=== PATIENT | male | born 1990 | race Caucasian/White ===

== ENCOUNTER 2020-01-06 00:06 | Observation (INO) | payer OTHER, BC, SELFPAY ==
[2020-01-06] VITALS (13 sets, daily range): BP systolic 98–124; BP diastolic 46–78; PULSE 64–105; RESP 15–20; TEMP 36.2–37.2; O2SAT 95–100; BMI 24.6
--- NOTE | ~2020-01-06 | CT_ITS ---
EXAMINATION: CT abdomen pelvis w con INDICATION: Right lower quadrant abdominal pain TECHNIQUE: Computed tomographic images of the abdomen and pelvis were obtained after the administrati on of 100 cc of Omnipaque 350 intravenous contrast. The dose-length product (DLP) was 277.88 mGy-cm. Automated exposure control and iterative reconstruction technique were employed. COMPARISON: 11/11/2019 FINDINGS: The lung bases are clear. The heart size is normal. The liver, spleen, pancreas, gallbladde r, and adrenal glands are normal. Cysts there is a 6 mm cyst of the left kidney. The right kidney is normal. The dilated appendix measures up to 11 mm. There is edematous stranding of the periappendicea l fat. Prominent right pericolic lymph nodes are likely reactive. There is a small amount of free flu id in the pelvis. No free intraperitoneal gas is identified. The stomach is distended with ingested m aterial. IMPRESSION: 1. Acute appendicitis without perforation or abscess. 2. Small amount of pelvic ascites. 3. Right pericolic lymph nodes, likely reactive. These findings were discussed with Dr. Mariano Hewitt DO in the Emergency Department at 0140 hour s on 01/06/2020 by the [employer] Radiologist. Reviewed, dictated and finalized at location A. SOFTWARE QA ENGINEER IMPRESSION: 1. Acute appendicitis without perforation or abscess. 2. Small amount of pelvic ascites. 3. Right pericolic lymph nodes, likely reactive. These findings were discussed with Dr. Mariano Hewitt DO in the Emergency D epartment at 0140 hours on 01/06/2020 by the [employer] Radiologist.
--- NOTE | 2020-01-06 00:28 | ED.ABDPAIN ---
HPI - Abdominal Pain General Chief Complaint: Abdominal Pain Stated Complaint: abd pain Time Seen by Provider: 01/06/20 00:13 Source: patient and RN notes reviewed Mode of arrival: ambulatory Limitations: no limitations History of Present Illness HPI narrative: Pt is a 29 y/o male who presents to the ED with c/o epigastric pain starting this evening. He notes that he initially developed pain in his epigastric region around 18:00, but states that his pain worsened around 21:00. Pt notes that his pain radiates into his rt lower ABD. He denies any nausea, vomiting, fever, or chills accompanying his pain. Pt states that he hasn't taken any pain medications for his symptoms. MD elicited complaint: abdominal pain Pertinent past history: kidney stones Onset (ago): hour(s) (6) Location: epigastric Radiation: RLQ Associated symptoms: denies other symptoms Related Data Allergies Allergy/AdvReac Type Severity Reaction Status Date / Time No Known Allergies Allergy Verified 11/11/19 10:52 Review of Systems Review of Systems: All systems reviewed & are unremarkable except as noted in HPI and below Constitutional: Constitutional: Denies chills and Denies fever(s) Gastrointestinal: Gastrointestinal: Reports abdominal pain (epigastric pain radiating into RLQ), Denies nausea and Denies vomiting PMFSH Past Medical History Medical History Urolithiasis Surgical History Surgical History H/O lithotripsy Social History Social History Smoking status: Never smoker Gender identity (if verbalized by the patient): Male Exam Narrative: Exam Narrative: APPEARANCE: No acute distress, nontoxic, resting in bed HEENT: Normocephalic, atraumatic, OMM RESPIRATORY: No respiratory distress, clear to auscultation bilaterally with no rhonchi wheezing or rales CARDIOVASCULAR: RRR s murmur ABDOMINAL: Soft, nondistended, tender to palpation right lower quadrant, no tenderness in right upper quadrant, left upper quadrant left lower quadrant, no rebound or guarding MUSCULOSKELETAl: Moves all extremities. No clubbing, cyanosis or edema. NEURO: Awake and alert. Following commands, speech normal, no focal deficits SKIN:: Warm, dry. Normal Color PSYCHIATRIC: Normal affect/mood Course Course Emergency Course: Discussed with Dr. Myers presentation work-up. Agrees with admission to his service with patient started on Zosyn and n.p.o. Discussed with patient and family results of workup and diagnosis. Discussed need for admission. Patient and family understand and agree to current treatment plan Vital Signs Vital signs: Vital Signs Temperature 98.2 F 01/06/20 00:09 Pulse Rate 105 H 01/06/20 00:09 Respiratory Rate 18 01/06/20 00:09 Blood Pressure 124/77 01/06/20 00:09 Pulse Oximetry 99 01/06/20 00:09 Temperature 98.2 F 01/06/20 00:09 Pulse Rate 105 H 01/06/20 00:09 Respiratory Rate 18 01/06/20 00:09 Blood Pressure 124/77 01/06/20 00:09 Pulse Oximetry 99 01/06/20 00:09 MDM - Abdominal Pain Lab Data Result diagrams: 01/06/20 00:25 01/06/20 00:25 Labs: Lab Results 01/06/20 01/06/20 Range/Units 00:25 00:25 WBC 13.9 H (4.5-10.0) K/mm3 RBC 5.03 (4.6-6.20) M/mm3 Hgb 15.3 (14.0-18.0) g/dL Hct 45.2 (42.0-52.0) % MCV 89.9 (80-100) fl MCH 30.4 (26-34) pg MCHC 33.8 (32-36) g/dl RDW 13.1 (11.5-14.5) % Plt Count 253 (150-375) k/mm3 MPV 10.0 (7.4-10.4) fl Immature Gran % (Auto) 0.5 (0-0.5) % Neut % (Auto) 75.0 H (45.5-73.1) % Lymph % (Auto) 10.8 L (18.3-44.2) % [place] % (Auto) 10.5 H (2.6-8.5) % Eos % (Auto) 2.8 (0-4.4) % Baso % (Auto) 0.4 (0.2-1.2) % Lymph # (Auto) 1.50 (0.9-3.2) K/mm3 [place] # (Auto) 1.5 H (0.1-0.6) K/mm3 Eos # (Auto) 0.4 H (0-0.3) K/mm3 Baso # (Auto) 0.1
[2020-01-06] MEDS: KETOROLAC 30 MG/ML VIAL (*BKC) IV PUSH (00:42)
[2020-01-06] MEDS: LACTATED RINGERS 1,000 ML 999 ML IV CONT (00:42)
--- NOTE | 2020-01-06 00:42 | PC.NURSE ---
Patient notified we need urine sample, fluids initiated.
[2020-01-06 00:45] LABS: Alanine Aminotransferase 21 U/L (4-50); Albumin Level 4.8 g/dL (3.5-5.1); Alkaline Phosphatase 80 U/L (38-126); Aspartate Amino Transferase 23 U/L (17-59); Bilirubin,Total 0.9 mg/dL (0.2-1.3); Blood Urea Nitrogen 17 mg/dL (9-20); Calcium 9.5 mg/dL (8.4-10.2); Carbon Dioxide 25 mmol/L (22-30); Chloride 98 mmol/L (98-107); Estimated Glomerular Filt Rate > 60; Glucose 127 mg/dL (75-110); Lipase 88 U/L (23-300); Potassium 3.9 mmol/L (3.4-5.0); Sodium 139 mmol/L (137-145)
[2020-01-06 00:46] LABS: Basophils Absolute Auto 0.1 K/mm3 (0.0-0.1); Basophils Percent Auto 0.4 % (0.2-1.2); Eosinophils Absolute Auto 0.4 K/mm3 (0-0.3); Eosinophils Percent Auto 2.8 % (0-4.4); Hematocrit 45.2 % (42.0-52.0); Hemoglobin 15.3 g/dL (14.0-18.0); Immature Granulocyte Absolute 0.07 K/mm3 (0.00-0.031); Immature Granulocyte Percent A 0.5 % (0-0.5); Lymphocytes Percent Auto 10.8 % (18.3-44.2); Mean Corpuscular HGB Conc 33.8 g/dl (32-36); Mean Corpuscular Hemoglobin 30.4 pg (26-34); Mean Corpuscular Volume 89.9 fl (80-100); Monocytes Absolute Auto 1.5 K/mm3 (0.1-0.6); Monocytes Percent Auto 10.5 % (2.6-8.5); Neutrophils Absolute Auto 10.5 K/mm3 (1.3-6.7); Platelet Count Result 253 k/mm3 (150-375); Red Blood Count 5.03 M/mm3 (4.6-6.20); Red Cell Distribution Width 13.1 % (11.5-14.5); White Blood Count 13.9 K/mm3 (4.5-10.0)
[2020-01-06 02:28] LABS: Add Urine Microscopic? YES; Appearance Urine Clear (Clear); Bilirubin Urine Negative (Negative); Blood Urine Negative (Negative); Color Urine Yellow (Yellow); Glucose Urine UA Negative (Negative); Ketones Urine Negative (Negative); Leukocyte Esterase Ur Negative LEU/UL (Negative); Mucus Urine Rare /lpf; Nitrate Urine Negative (Negative); Protein Urine Negative (Negative); RBC Urine 0-2 /hpf (0-2); WBC Urine 0-3 /hpf
[2020-01-06] MEDS: LACTATED RINGERS 1,000 ML 125 ML IV CONT ×2 (02:56→11:37)
--- NOTE | 2020-01-06 03:12 | PC.NURSE ---
This patient, Jonathan Madrid, was admitted to Medical Room 251-. Patient/family oriented to hospital policies and general routines including ID bracelet, bed and alarms, visiting hours, pain management, procedures, bathroom and other care routines, personal items, smoking policy, room service/diet, and visiting hours. Valuables list has been completed. Information on how to activate the Rapid Response Team has been discussed. Patient/Family are encouraged to report perceived risks to care and to ask questions if they do not understand what they are told or what they should do.
--- NOTE | 2020-01-06 08:35 | WPDANESEPPF ---
Anes - Initial Pre Proc Eval Procedure: Operation Date: 01/06/20 15:00 Proposed Procedures p Laparoscopic Appendectomy - Vincent Myers DO Date/Time: 01/06/20 08:35 Surgeon: Vincent Myers DO Pre Op Diagnosis: Appendicitis Patient Data Age: 29 Gender: M Height: 1.63 m Weight: 65.1 kg Last Vital Signs Temp 36.9 C 01/06/20 06:00 Pulse 64 01/06/20 06:00 Resp 20 01/06/20 06:00 BP 107/70 01/06/20 06:00 Pulse Ox 98 01/06/20 06:00 Allergies Allergy/AdvReac Type Severity Reaction Status Date / Time No Known Allergies Allergy Verified 11/11/19 10:52 Home Medications Medication Instructions Recorded Confirmed Type ketorolac 10 mg PO Q6H PRN #10 tablet 11/11/19 Rx ondansetron HCl [Zofran] 4 mg PO Q6H PRN #7 tablet 11/11/19 Rx tamsulosin [Flomax] 0.4 mg PO HS #7 cap 11/11/19 Rx Laboratory Tests 01/06/20 01/06/20 01/06/20 00:25 00:25 02:04 WBC 13.9 K/mm3 H K/mm3 (4.5-10.0) RBC 5.03 M/mm3 M/mm3 (4.6-6.20) Hgb 15.3 g/dL g/dL (14.0-18.0) Hct 45.2 % % (42.0-52.0) MCV 89.9 fl fl (80-100) MCH 30.4 pg pg (26-34) MCHC 33.8 g/dl g/dl (32-36) RDW 13.1 % % (11.5-14.5) Plt Count 253 k/mm3 k/mm3 (150-375) MPV 10.0 fl fl (7.4-10.4) Immature Gran % (Auto) 0.5 % % (0-0.5) Neut % (Auto) 75.0 % H % (45.5-73.1) Lymph % (Auto) 10.8 % L % (18.3-44.2) [place] % (Auto) 10.5 % H % (2.6-8.5) Eos % (Auto) 2.8 % % (0-4.4) Baso % (Auto) 0.4 % % (0.2-1.2) Lymph # (Auto) 1.50 K/mm3 K/mm3 (0.9-3.2) [place] # (Auto) 1.5 K/mm3 H K/mm3 (0.1-0.6) Eos # (Auto) 0.4 K/mm3 H K/mm3 (0-0.3) Baso # (Auto) 0.1 K/mm3 K/mm3 (0.0-0.1) Abs Immat Gran (auto) 0.07 K/mm3 H K/mm3 (0.00-0.031) Absolute Neuts (auto) 10.5 K/mm3 H K/mm3 (1.3-6.7) Absolute Nucleated RBC 0.0 K/mm3 K/mm3 (0.0-0.012) Nucleated RBC % 0.0 % % (0.0-0.2) Sodium 139 mmol/L mmol/L (137-145) Potassium 3.9 mmol/L mmol/L (3.4-5.0) Chloride 98 mmol/L mmol/L (98-107) Carbon Dioxide 25 mmol/L mmol/L (22-30) BUN 17 mg/dL mg/dL (9-20) Creatinine 1.00 mg/dL mg/dL (0.7-1.3) Estim Creat Clear Calc Not Reportable Estimated GFR > 60 (59 - ) Glucose 127 mg/dL H mg/dL (75-110) Calcium 9.5 mg/dL mg/dL (8.4-10.2) Total Bilirubin 0.9 mg/dL mg/dL (0.2-1.3) AST 23 U/L U/L (17-59) ALT 21 U/L U/L (4-50) Alkaline Phosphatase 80 U/L U/L (38-126) Total Protein 8.0 g/dL g/dL (6.3-8.2) Albumin 4.8 g/dL g/dL (3.5-5.1) Lipase 88 U/L U/L (23-300) Urine Color Yellow (Yellow) Urine Appearance Clear (Clear) Urine pH 6.0 (5.0-9.0) Ur Specific [place] 1.050 H (1.001-1.035) Urine Protein Negative mg/dL mg/dL (Negative) Urine Glucose (UA) Negative mg/dL mg/dL (Negative) Urine Ketones Negative mg/dL mg/dL (Negative) Ur Blood (Man) Negative (Negative) Urine Nitrate Negative (Negative) Urine Bilirubin Negative (Negative) Urine Urobilinogen 2.0 mg/dL H mg/dL (<2.0) Leukocyte Esterase Rfl Negative MIKE/UL MIKE/UL (Negative) Urine RBC 0-2 /hpf /hpf (0-2) Urine WBC 0-3 /hpf /hpf Urine Mucus Rare /lpf /lpf Patient hx anesthesia problems: none Family hx anesthesia problems: none [facility] Past Medical History Medical History Urolithiasis Surgical History Surgical History H/O lithotripsy Family History Family History (Reviewe
--- NOTE | 2020-01-06 09:14 | PM.IMHP ---
H&P: HPI History of Present Illness Chief complaint: Appendicitis Narrative: Jonathan Madrid is a 29 year old male who presented to the emergency department last night with complaints of abdominal pain. The patient reports initially noting epigastric pain around 4:00 p.m. last night. He states the pain was very mild any thought he needed to eat. He ate a sandwich and chips, but his pain did not improve. The pain continued to worsen through the evening and began to localize to the right lower quadrant of his abdomen. Denies nausea but he attempted to make himself vomit, but this did not improve his symptoms either. The pain was unrelenting and continued to worsen, therefore he presented to the emergency department for further evaluation. CT scan of the abdomen and pelvis showed an enlarged fluid-filled appendix measuring up to 11 mm with mild periappendiceal fat induration, consistent with acute appendicitis. No evidence of perforation or abscess. Labs revealed a white blood cell count of 13,900. Our service was contacted for the acute appendicitis and the patient was admitted and started on IV antibiotics and made NPO. Patient is now being seen on the medical floor. He reports his pain significantly improved after receiving Toradol in the ER. Denies nausea or vomiting at this time. He does report a low-grade temp of 99.7? F last night around 9:00 p.m.. No other complaints at this time. Review of Systems Constitutional: Constitutional: Reports as per HPI, Denies chills, Denies excessive sweating, Denies fatigue, Reports fever(s) (low grade 99.7F last night), Denies headache(s), Denies malaise and Denies weakness Eyes: Eyes: Denies change in vision and Denies loss of vision ENT: Reports Normal hearing present, Denies dizziness and Denies headache(s) Cardiovascular: Cardiovascular: Denies chest pain, Denies syncope, Denies leg edema, Denies lightheadedness, Denies radiating jaw, neck or arm pain and Denies dyspnea Respiratory: Respiratory: Denies cough, Denies dyspnea and Denies wheezing Gastrointestinal: Gastrointestinal: Reports as per HPI, Reports abdominal pain (initially mid upper and radiated to RLQ), Denies melena, Denies bloating, Denies hematochezia, Denies change in bowel habits, Denies constipation, Denies GI cramping, Denies diarrhea and Denies nausea Musculoskeletal: Musculoskeletal: Denies deformity, Denies joint swelling, Denies radiating pain into limb and Denies tingling Integumentary/Breasts: Skin/Breast: Denies pruritus, Denies wounds and Denies jaundice Neurologic: Reports Normal hearing present, Denies confusion, Denies dizziness, Denies syncope, Denies headache(s), Denies loss of vision, Denies tingling, Denies tremor(s) and Denies weakness Psychiatric: Psychiatric: Denies anxiety and Denies depression Endocrine: Endocrine: Denies cold intolerance, Denies excessive sweating and Denies heat intolerance Hematologic/Lymphatic: Hematologic/Lymphatic: Denies easy bleeding and Denies easy bruising [facility] Past Medical History Medical History Urolithiasis Surgical History Surgical History H/O lithotripsy Family History Family History Father Pancreatic cancer Grandparent Skin cancer Social History Social History Smoking status: Former smoker Additional smoking assessment comments: Previously smoked about 1 cigaretter per month. Alcohol intake: never Substance use: never Living arrangements: with roommate(s) Additional living arrangements comments: Lives with 2 roommates. His mother and sister live in [place]. Occupation/Education: occupation Additional occupation/education comments: Works at [employer] for [employer]. Gender identity (if verbalized by the patien
--- NOTE | 2020-01-06 13:40 | PC.NURSE ---
To OR per bed, IV intact.
[2020-01-06] MEDS: LACTATED RINGERS 1,000 ML 30 ML IV CONT (14:00)
[2020-01-06] MEDS: IBUPROFEN IV 800 MG/200 ML 800 MG/200 ML BAG 400 MG IVPB (14:15)
[2020-01-06] MEDS: BUPIVACAINE/EPINEPHRINE 0.5% 30 ML VIAL INFILTRATE (15:42)
--- NOTE | 2020-01-06 16:08 | PM.PROC ---
Procedure Note - Detailed Date of procedure: 01/06/20 Pre-op diagnosis: Appendicitis Post-op diagnosis: same Procedure performed: Laparoscopic Appendectomy Description of procedure: Procedure as well as risks, benefits, and alternatives were explained to the patient. The patient agreed to proceed. Written consent was obtained and placed in chart prior to procedure. The patient was brought back to surgical suite. He was placed supine on operating table. Time-out was done to confirm the patient and procedure. The patient was then intubated by the Anesthesia Department. His abdomen was prepped and draped in sterile fashion using chlorhexidine prep. A 12 mm incision was made at the inferior portion of the umbilicus. Blunt dissection was carried out down to the linea alba. The linea alba was then incised using a 15 blade scalpel. Then bluntly entered into the peritoneal cavity. A 12 mm trocar was then inserted, and carbon dioxide insufflation was used to create a pneumoperitoneum. The camera was inserted and the abdomen was inspected. No immediate abnormalities were identified. The patient was then placed in slight Trendelenburg position and rotated to the left. A 5 mm incision was made in the suprapubic region in midline and a 5 mm trocar was inserted under direct visualization. A 5 mm incision was made in the left lower quadrant and a 5 mm trocar was inserted under direct visualization. The right lower quadrant was carefully inspected. The cecum was identified and then this was traced back to the appendix. The appendix was identified and grasped at the mesoappendix and lifted anteriorly. Careful blunt dissection was carried out at the base of the appendix through the mesoappendix using a [place] grasper. An Endo-DERREK 45 mm blue load stapler was then advanced across the base of the appendix and clamped and fired. A white reload was then clamped across the mesoappendix and fired. This freed up our appendix completely. It was then placed in an EndoCatch bag and removed through the left lower quadrant port. The staple lines were then inspected. Hemostasis appeared adequate and the staple lines appeared secure. The area was then irrigated with sterile saline. The pelvis was then carefully inspected and irrigated with sterile saline as well and the remainder of the abdomen was carefully inspected. The patient was then flattened out in bed. One final inspection was made around the abdominal cavity and no other abnormalities were seen. The ports were then removed under direct visualization. The camera was removed and the pneumoperitoneum was released. The fascia of the umbilical incision was reapproximated using an 0 Vicryl afowms-ot-wakjl suture. 0.5% bupivacaine with epinephrine was infiltrated locally around each of the incisions. The skin of the incisions was then approximated using 4-0 Monocryl subcuticular suture and Exofin glue was applied on top. The patient was then awakened from anesthesia, extubated, and transferred to Recovery. Anesthesia: GETA and local (0.5% bupivicaine with epi) Surgeon: Vincent Myers DO Estimated blood loss (mL): 10 Pathology: yes (Appendix) Complications: No immediate complications Condition: stable Findings: This is a 29-year-old man who presented to the emergency department this morning with complaints of right lower quadrant abdominal pain. He began with vague cramping periumbilical pain last night that eventually localized to the right lower quadrant. He denies any fevers or chills. He has never had any symptoms like this in the past. He was noted to have a slightly elevated white blood count, and CT of his abdomen and pelvis showed evidence of acute appendicitis. Discussions were made with the patient about treatment options, and decision was made to proceed with laparoscopic appendectomy, possible open. Laparoscopic appendectomy was performed. The appendix appeared dilated and inflamed, but there was
--- NOTE | 2020-01-06 16:42 | SUR.PHASEI ---
1640 - no family available at this time for update 1642 - dr. mosley at bedside talking with pt.
--- NOTE | 2020-01-06 16:56 | SUR.PHASEI ---
1456 - pt's mom called for update on pt. pt stated that I could give her update.
== END 2020-01-06 19:03 | disposition home or self-care (01) ==
LOC: ANHED 01:49 → ANH2MED 02:39
PROVIDERS: Admitting Provider Surgery; Emergency Provider Emergency Medicine; Visit Provider Surgery
PROC: 0DTJ4ZZ Resection of Appendix, Percutaneous Endoscopic Approach (ICD-10-PCS; CPT 44970; principal; 2020-01-06 15:00)
DX: K35.30 Acute appendicitis with localized peritonitis, without perforation or gangrene (principal); Z79.899 Other long term (current) drug therapy; Z87.442 Personal history of urinary calculi
CPT/HCPCS: 44970; 36415; 74177; 80053; 81001; 83690; 85025; 88304; 96361; 96365; 96375; 99285; G0378; J0330; J1100; J1741; J1885; J2250; J2405; J2543; J2704; J2710; J3010; J7030; J7120; Q9967

== ENCOUNTER 2021-02-23 22:57 | Emergency (ER) | payer BC, OTHER, SELFPAY ==
[2021-02-23 23:06] VITALS: BP 125/69; PULSE 112; RESP 14; TEMP 36.4; O2SAT 98
[2021-02-23 23:28] LABS: Basophils Percent Auto 0.2 % (0.2-1.2); Eosinophils Absolute Auto 0.3 K/mm3 (0-0.3); Eosinophils Percent Auto 2.1 % (0-4.4); Hematocrit 44.6 % (42.0-52.0); Hemoglobin 15.5 g/dL (14.0-18.0); Immature Granulocyte Absolute 0.06 K/mm3 (0.00-0.031); Immature Granulocyte Percent A 0.5 % (0-0.5); Lymphocytes Absolute Auto 0.49 K/mm3 (0.9-3.2); Lymphocytes Percent Auto 3.7 % (18.3-44.2); Mean Corpuscular HGB Conc 34.8 g/dl (32-36); Mean Corpuscular Hemoglobin 30.6 pg (26-34); Mean Corpuscular Volume 88.1 fl (80-100); Mean Platelet Volume 9.6 fl (7.4-10.4); Monocytes Absolute Auto 1.1 K/mm3 (0.1-0.6); Monocytes Percent Auto 8.2 % (2.6-8.5); Neutrophils Absolute Auto 11.2 K/mm3 (1.3-6.7); Neutrophils Percent Auto 85.3 % (45.5-73.1); Platelet Count Result 231 k/mm3 (150-375); Red Blood Count 5.06 M/mm3 (4.6-6.20); Red Cell Distribution Width 12.6 % (11.5-14.5); White Blood Count 13.1 K/mm3 (4.5-10.0)
[2021-02-23 23:38] LABS: Alanine Aminotransferase 212 U/L (4-50); Albumin Level 4.8 g/dL (3.5-5.1); Alkaline Phosphatase 57 U/L (38-126); Anion Gap 10 mmol/L (8-16); Aspartate Amino Transferase 596 U/L (17-59); Bilirubin,Total 0.8 mg/dL (0.2-1.3); Blood Urea Nitrogen 22 mg/dL (9-20); Carbon Dioxide 25 mmol/L (22-30); Chloride 103 mmol/L (98-107); Estimated CRCL calculation 81 ml/min; Estimated Glomerular Filt Rate > 60; Glucose 113 mg/dL (75-110); Lipase 79 U/L (23-300); Potassium 3.5 mmol/L (3.4-5.0); Sodium 138 mmol/L (137-145)
--- NOTE | 2021-02-24 01:05 | ED.GENADULT ---
HPI - General Adult General Chief complaint: Nausea/Vomiting/Diarrhea Stated complaint: vomiting Time Seen by Provider: 02/24/21 00:54 Source: patient History of Present Illness HPI narrative: Patient is a 30 y/o male complaining nausea and vomiting starting 5-6 hours ago. He vomited approximately 7 times. His vomiting is mostly bile. He also has mild abdominal pain and some diarrhea. There is no known alleviating or exacerbating factor. He has some chills, but no fever. He denies recent alcohol use. Related Data Allergies Allergy/AdvReac Type Severity Reaction Status Date / Time No Known Allergies Allergy Verified 02/24/21 02:08 Review of Systems Constitutional: Constitutional: Denies chills, Denies fever(s), Denies headache(s) and Denies weakness Eyes: Eyes: Denies blurry vision ENT: Denies headache(s) and Denies neck pain Cardiovascular: Cardiovascular: Denies chest pain and Denies dyspnea Respiratory: Respiratory: Denies cough and Denies dyspnea Gastrointestinal: Gastrointestinal: Reports abdominal pain, Reports diarrhea, Reports nausea and Reports vomiting Genitourinary: Genitourinary: Denies hematuria and Denies dysuria Musculoskeletal: Musculoskeletal: Denies back pain and Denies neck pain Neurologic: Denies headache(s) and Denies weakness [facility] Past Medical History Medical History (Updated 02/25/21 @ 00:01 by Sidney Damehrdad) Urolithiasis Surgical History Surgical History H/O lithotripsy History of laparoscopic appendectomy 01/06/2020 Family History Family History Father Pancreatic cancer Grandparent Skin cancer Social History Social History Smoking status: Former smoker Additional smoking assessment comments: Previously smoked about 1 cigaretter per month. Alcohol intake: never Substance use: never Additional living arrangements comments: Lives with 2 roommates. His mother and sister live in [place]. Additional occupation/education comments: Works at [employer] for [employer]. Gender identity (if verbalized by the patient): Male Spiritual care concerns: No Agree to blood products: Yes Exam Const: General: no acute distress and well developed Orientation/consciousness: oriented to person, oriented to place, oriented to time and patient oriented x3 HENMT: Head: normocephalic Ears: external ears normal General nose exam: Normal external nose present Eyes: General: appearance normal, both eyes and all related structures Conjunctivae: conjunctivae normal Neck: Neck: normal visual inspection and full ROM Chest: Chest palpation & inspection: normal inspection of the chest and no tenderness Resp: Effort & Inspection: normal respiratory effort Auscultation: clear to auscultation bilaterally Cardio: Rate: regular rate Rhythm: regular rhythm GI: GI Palp: No abdominal tenderness and Yes Soft to palpation Skin: General skin exam: normal color and turgor normal Neuro: General: oriented to person, oriented to place, oriented to time and patient oriented x3 Cognition (Neuro): normal cognition Extrem: General: normal to inspection, full ROM and no pedal edema Psych: Appearance: grossly normal Mental Status: mental status grossly normal Affect: normal affect Course Vital Signs Vital signs: Vital Signs Temperature 36.4 C 02/23/21 23:06 Pulse Rate 112 H 02/23/21 23:06 Respiratory Rate 14 02/23/21 23:06 Blood Pressure 125/69 02/23/21 23:06 Pulse Oximetry 98 02/23/21 23:06 Temperature 36.4 C 02/23/21 23:06 Pulse Rate 82 02/24/21 02:32 Respiratory Rate 14 02/24/21 02:32 Blood Pressure 117/62 02/24/21 02:32 Pulse Oximetry 100 02/24/21 02:32 Medical Decision Making Vital Signs Vital Signs: Vital Signs Temperature 36.4 C 02/23/21 23:06 Pulse Ra
[2021-02-24] MEDS: SODIUM CHLORIDE 0.9% IV 1,000 ML 999 ML IV CONT (01:15)
[2021-02-24] MEDS: ONDANSETRON INJ 4 MG/2 ML VIAL IV PUSH (01:15)
[2021-02-24 01:20] VITALS: BP 112/65; PULSE 85; RESP 16; O2SAT 100
[2021-02-24 01:32] VITALS: BP 113/63; PULSE 86; RESP 16; O2SAT 100
[2021-02-24 01:41] LABS: Hepatitis B Surface Antigen Negative (Negative)
[2021-02-24 01:47] LABS: HAV RESULT Negative (Negative); Hepatitis B Core IgM Result Negative (Negative)
[2021-02-24 01:58] LABS: Hepatitis C Virus Antibody Negative (Negative)
[2021-02-24 02:00] LABS: Add Urine Microscopic? YES; Appearance Urine Cloudy (Clear); Bilirubin Urine Negative (Negative); Blood Urine Negative (Negative); Color Urine Yellow (Yellow); Glucose Urine UA Negative (Negative); Ketones Urine 2+ mg/dL (Negative); Leukocyte Esterase Ur Negative LEU/UL (Negative); Mucus Urine Few /lpf; Nitrate Urine Negative (Negative); Protein Urine 1+ mg/dL (Negative); RBC Urine 0-2 /hpf (0-2); Squamous Epithelial Cell Urine Rare /hpf (Few); Urobilinogen Urine Negative mg/dL (<2.0); WBC Urine 0-3 /hpf
--- NOTE | 2021-02-24 02:01 | PC.NURSE ---
Pt drinking water without difficulty or nausea.
[2021-02-24 02:23] LABS: Specific Grav Ur 1.032 (1.001-1.035)
[2021-02-24 02:26] LABS: Acetaminophen < 10 ug/mL (10-30)
[2021-02-24 02:32] VITALS: BP 117/62; PULSE 82; RESP 14; O2SAT 100
[2021-02-24 21:08] LABS: SARS-CoV-2 RNA PCR Negative
== END 2021-02-24 02:32 | disposition home or self-care (01) ==
PROVIDERS: Emergency Medicine; Emergency Provider Emergency Medicine
DX: K52.9 Noninfective gastroenteritis and colitis, unspecified (principal); Z20.822 Contact with and (suspected) exposure to COVID-19; Z87.442 Personal history of urinary calculi; Z87.891 Personal history of nicotine dependence
CPT/HCPCS: 36415; 80053; 80074; 80307; 81001; 83690; 85025; 96374; 99284; C9803; J2405; J7030; U0003; U0005

== ENCOUNTER 2022-12-22 13:26 | Outpatient (CLI) | payer BC, SELFPAY ==
--- NOTE | ~2022-12-22 | XR_ITS ---
EXAMINATION: XR abdomen/kub 1V DATE: 12/22/2022 13:47 INDICATION: Bilateral kidney stones. TECHNIQUE: A supine view of the abdomen on 2 radiographs was obtained. COMPARISON: CT abdomen and pelvis 01/06/2020 FINDINGS: There are no dilated loops of bowel. There is a moderate volume of stool in the colon. Ther e are surgical clips in right abdomen. IMPRESSION: 1. No visible urolithiasis. Reviewed, dictated and finalized at location A. L BENCH PATTERNMAKER IMPRESSION: 1. No visible urolithiasis.
--- NOTE | ~2022-12-22 | US_ITS ---
EXAMINATION: US retroperitoneal comp DATE: 12/22/2022 14:22 INDICATION: Bilateral kidney stones TECHNIQUE: Multiple grayscale and Doppler ultrasound images of the kidneys were obtained. COMPARISON: None. FINDINGS: The right kidney measures 9.9 x 3.5 cm. The left kidney measures 11.0 x 6.5 x 4.8 cm. There is a 9 mm cyst of the left kidney. The kidneys demonstrate normal parenchymal echogenicity. No stone s are identified in the kidneys. There is no hydronephrosis. The bladder is normal. IMPRESSION: 1. No urolithiasis identified. Reviewed, dictated and finalized at location L. CAL ADMINISTRATIVE
== END 2022-12-22 13:27 | disposition home or self-care (01) ==
LOC: ANHIMG 13:31
PROVIDERS: Visit Provider Nurse Practitioner Adult Health
DX: N20.0 Calculus of kidney (principal)
CPT/HCPCS: 74018; 76770

== ENCOUNTER 2025-03-20 14:30 | Outpatient (CLI) | payer BC, SELFPAY ==
--- NOTE | ~2025-03-20 | XR_ITS ---
Supine and upright views of the abdomen Clinical history: Kidney stones COMPARISON: 12/22/2022 Findings: Bowel gas pattern is nonspecific. No evidence for obstruction or free air. No abnormal mass lesion or calcification is seen. Osseous structures are intact. Impression: No significant abnormality is seen. Reviewed, dictated and finalized at [facility]. Impression: No significant abnormality is seen.
--- OUTSIDE RECORDS SUMMARY | 2025-03-20 14:36 | XMS_ITS | Clinical Summary ---
Author Organization [facility] Address [facility] [place] [address] Care Team Providers Care Rn Geriatric Name Role Phone Priscilla Montalvo MD Primary Care Provider [phone] Medications cetirizine (ZYRTEC ALLERGY) 10 MG tablet Take 1 tablet (10 mg total) by mouth daily as needed. 07/19/2016 Active vitamin D2, ergocalciferol, (DRISDOL) 1.25 mg capsuleIndicati ons:Vitamin D deficiency,Medi cation management Take 1 capsule (1.25 mg total) by mouth every 7 days. 12 capsule 05/09/2023 Active Active Problems No known active problems Immunizations Immunization Administration Dates Next Due Influenza (Generic) 10/14/2014 PFIZER COVID-19 (ORIGINAL FO RMULATION, PURPLE CAP) mRNA, LNP-S, PF, 30 MCG/0.3 ML DOSE 04/28/2021,03/31/2021 Family History Medical History Relation Comments Cancer Father pancreatic No Known Problems Mother Cancer Paternal Grandfather skin cancer Relation Status Comments Father Mother Alive Paternal Grandfather Social History Tobacco Use Types Packs/Day Years Used Date Smoking Tobacco: Some Days Cigarettes Smokeless Tobacco: Never Tobacco Cessation:Ready to Q uit: No; Counseling Given: Yes Comments:Just a few a week, Alcohol Use Standard Drinks/Week Comments Never 0 (1 standard drink = 0.6 oz pur e alcohol) PHQ-2 Answer Date Recorded Patient Health Questionnaire-2 Score 0 05/08/2023 Sex and Gender Information Value Date Recorded Sex Assigned at Not on file Legal Sex Male 4:08 PM CDT Gender Identity Not on file Sexual Orientation Not on file Last Filed Vital Signs Vital Sign Reading Time Taken Comments Blood Pressure 115/77 05/08/2023 7:00 AM CDT Pulse 74 05/08/2023 7:00 AM CDT Temperature 36.5 C (97.7 F) 05/08/2023 7:00 AM CDT Respiratory Rate 16 05/08/2023 7:00 AM CDT Oxygen Saturation 97% 05/08/2023 7:00 AM CDT Inhaled Oxygen Concentration - - Weight 73.7 kg (162 lb 6.4 oz) 05/08/2023 7:00 A M CDT Height 162.6 cm (5' 4 ) 05/08/2023 7:00 AM CDT Body Mass Index 27.88 05/08/2023 7:00 AM CDT Plan of Treatment Health Maintenance Due Date Last Done Comments Hepatitis C 2006 DTaP, Tdap and Td Vaccines ( 1 - Tdap) 2007 Hepatitis B Vaccines (1 of 3 - 19+ 3-dose series) 2007 Pneumococcal Vaccine: Pediatrics (0 to 5 Years) and At-Risk Patients (6 to 49 Years) (1 of 2 - PCV) 2007 Annual Physical 05/08/2024 05/08/2023 COVID-19 Vaccine (3 - 2023-2 5 season) 2024 04/28/2021, 03/31/2021 PHQ-2 (Physician [place]) 11/13/2024 05/08/2023 HPV Vaccines Aged Out No longer eligi ble based on patient's age to complete this topic Meningococcal B Vaccine Aged Out No l onger eligible based on patient's age to complete this topic Meningococcal Vaccine Aged Out No nargis sayda eligible based on patient's age to complete this topic RSV Immunizations Under 20 Months Aged Out No longer eligible b ased on patient's age to complete this topic Insurance [facility] Care Teams Rn Geriatric Relationship Specialty Start [place] [address] [place] [address] PCP - General INTERNAL MEDICINE 02/06/25
--- OUTSIDE RECORDS SUMMARY | 2025-03-20 14:36 | XMS_ITS | Continuity of Care Document ---
Author Name [facility] Organization [facility] Care Team Providers Care Group Reservations Coordinator Name Role Phone [facility] Unavailable Unavailable Problems Combined list of problems from Department of Defense and Veterans Affairs facilities. It does not include entries that were removed or entered in error. Problem Status Onset Date Problem Type Date of Resolution Comments Source ASSESSMENT, POST-DEPLOYMENT, DOCUMENTED ON [id number] Inactive 12/10/[address] [facility] Encounter for other administrative examinations Inactive 08/24/2020 Condition DoD Allergies, Adverse Reactions, Alerts Combined list of allergies from Department of Defense and Veterans Affairs facilities. It does not include entries that were removed or entered in error. Substance Category Reaction Severity Reaction type Status Date Reported Comments Source No Known Allergies Drug allergy (disorder) active 01/12/2018 [facility] [place] [address] Immunizations Combined list of available immunizations from the Department of Defense and Veterans Affairs facilities. 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 Status Comments Source Influenza, injectable, quadrivalent, preservative free 6 2021 [id number] SmithKline (SKB) complet ed Influenza , injectabl e, quadrival ent, preservat payton free DoD influenza, injectable, quadrivalent- pf 2020 [id number] 150 GlaxoSmithKli ne complet ed influenza , injectabl e, quadrival ent-pf 08/05/21 Given Ambulat ory Pharmac y Influenza, injectable, quadrivalent, preservative free 5 2020 [id number] 150 SmithKline (SKB) complet ed Influenza , injectabl e, quadrival ent, preservat payton free DoD COVID Vaccine Pfizer 2020 TRANSCR IBED 208 PFIZER complet ed COVID Vaccine Pfizer 04/28/21 Given Ambulat ory Pharmac y SARS-COV-2 (COVID-19) vaccine, mRNA, spike protein, LNP, preservative free, 30 mcg/0.3mL dose 2 2020 208 Pfizer, Inc (PFR) complet ed SARS-COV- 2 (COVID-19 ) vaccine, mRNA, spike protein, LNP, preservat payton free, 30 mcg/0.3mL dose DoD COVID Vaccine Pfizer 2020 TRANSCR IBED 208 PFIZER complet ed COVID Vaccine Pfizer 03/31/21 Given Ambulat ory Pharmac y SARS-COV-2 (COVID-19) vaccine, mRNA, spike protein, LNP, preservative free, 30 mcg/0.3mL dose 1 2020 208 Pfizer, Inc (PFR) complet ed SARS-COV- 2 (COVID-19 ) vaccine, mRNA, spike protein, LNP, preservat payton free, 30 mcg/0.3mL dose DoD anthrax vaccine 2019 [id number] Emergent Biosolutions complet ed anthrax vaccine 11/01/20 Given Ambulat ory Pharmac y anthrax vaccine 4 2019 [id number] 24 Emergent BioDefense Operations Dow ([facility]) complet ed anthrax vaccine DoD influenza, injectable, quadrivalent 2019 [id number] 158 Seqirus complet ed influenza , injectabl e, quadrival ent 09/25/20 Given Ambulat ory Pharmac y influenza, injectable, quadrivalent, contains preservative 1 2019 [id number] 158 Seqirus (SEQ) complet ed influenza , injectabl e, quadrival ent, contains preservat payton DoD anthrax vaccine 2019 [id number] 24 Emergent Biosolutions complet ed anthrax vaccine 04/17/20 Given Ambulat ory Pharmac y anthrax vaccine 3 2019 [id number] 24 Emergent [employer] Dow ([facility]) complet ed anthrax vaccine DoD anthrax vaccine 2018 [id number] 24 Emergent Biosolutions complet ed anthrax vaccine 10/19/19 Given Ambulat ory Pharmac y anthrax vaccine 2 2018 [id number] Emergent [employer]Def[employer] Froylan ([facility]) complet ed anthrax vaccine DoD influenza, injectable, quadrivalent 2018 [id number] 158 Seqirus complet ed influenza , injectabl e, quadrival ent 08/17/19 Given Ambulat ory Pharmac y typhoid Vi capsular polysaccharid e vac 2018 [id number] sanofi pasteur complet ed typhoid Vi capsular polysacch aride vac 08/17/19 Given Ambulat ory Pharmac y anthrax vaccine 2018 [id number] 24 Emergent Biosolutions complet ed anthrax vaccine 08/17/19 Given Ambulat ory Pharmac y anthrax vaccine 1 2018 [id number] 24 Emergent [employer] Dow (MIP) complet ed anthrax vaccine DoD typhoid Vi capsular polysaccharid e vaccine 1 2018 [id number] Sanofi Pasteur (PMC) complet ed typhoid Vi capsular polysacch aride vaccine DoD influenza, injectable, quadrivalent, contains preservative 1 2018 [id number] 158 Seqirus (SEQ) complet ed influenza , injectabl e, quadrival ent, contains preservat payton DoD influenza, injectable, quadrivalent 2017 [id number] GlaxoSmithKli ne complet ed influenza , injectabl e, quadrival ent 09/15/18 Given Ambulat ory Pharmac y influenza, injectable, quadrivalent, contains preservative 1 2017 [id number] SmithKline (SKB) complet ed influenza , injectabl e, quadrival ent, contains preservat payton DoD measles/mumps /rubella virus vaccine 2017 [id number] Merck & Company Inc complet ed measles/m umps/rube lla virus vaccine 01/29/18 Given Ambulat ory Pharmac y measles, mumps and rubella virus vaccine 2 2017 [id number] Merck (MSD) complet ed measles, mumps and rubella virus vaccine DoD measles/mumps /rubella virus vaccine 2017 [id number] Merck & Company Inc complet ed measles/m umps/rube lla virus vaccine 12/20/17 Given Ambulat ory Pharmac y measles, mumps and rubella virus vaccine 1 2017 [id number] Merck (MSD) complet ed measles, mumps and rubella virus vaccine DoD hepatitis B vaccine, unspecified formulation 0 2017 45 () Not Given hepatitis B vaccine, unspecifi ed formulati on DoD hepatitis A vaccine, adult dosage 0 2017 52 () Not Given hepatitis A vaccine, adult dosage DoD adenovirus vaccine, live 2017 [id number] 143 Teva Pharmaceutica ls complet ed adenoviru s vaccine, live 12/14/17 Given Ambulat ory Pharmac y poliovirus vaccine, inactivated 2017 [id number] 10 sanofi pasteur complet ed polioviru s vaccine, inactivat ed 12/14/17 Given Ambulat ory Pharmac y meningococcal A,C,Y,W-135 (MCV4P) 2017 [id number] 114 sanofi pasteur complet ed meningoco ccal A,C,Y,W-1 35 (MCV4P) 12/14/17 Given Ambulat ory Pharmac y influenza virus vaccine, inactivated 2017 [id number] Seqirus complet ed influenza virus vaccine, inactivat ed 12/14/17 Given Ambulat ory Pharmac y tetanus, diphtheria, acellular pertu is 2017 [id number] 115 [facility] tetanus, diphtheri a, acellular pertussis 12/14/17 Given Ambulat ory Pharmac y poliovirus vaccine, inactivated 1 2017 [id number] 10 Sanofi Pasteur (PMC) complet ed polioviru s vaccine, inactivat ed DoD meningococcal polysaccharid e (groups A, C, Y and W-135) diphtheria toxoid conjugate vaccine (MCV4P) 1 2017 [id number] 114 Sanofi Pasteur (PMC) complet ed meningoco ccal polysacch aride (groups A, C, Y and W-135) diphtheri a toxoid conjugate vaccine (MCV4P) DoD tetanus toxoid, reduced diphtheria toxoid, and acellular pertu is vaccine, adsorbed 1 2017 [id number] 115 [employer] (SKB) complet ed tetanus toxoid, reduced diphtheri a toxoid, and acellular pertussis vaccine, adsorbed DoD Adenovirus, type 4 and type 7, live, oral 1 2017 [id number] 7 143 [facility] (BRR) complet ed Adenoviru s, type 4 and type 7, live, oral DoD Influenza, injectable, Madin Stephany Canine Kidney, quadrivalent with preservative 1 2017 [id number] Seqirus (SEQ) comple t ed Influenza , injectabl e, Madin [place] Canine Kidney, quadrival ent with preservat payton DoD mumps virus vaccine 0 2017 07 () Not Given mumps virus vaccine DoD varicella virus vaccine 0 2017 21 () Not Given varicella virus vaccine DoD Encounters Combined list of: 1) Encounters from Department of Veterans Affairs facilities going backup to the last 18 months, not all VA inpatient encounters are included; 2) Encounters from the Department of Defense facilities going backup to 280 months. Location Location Details Encounter Type Encounter Number Reason For Visit Attending Provider ADM Date DC Date Status Disposition Source [facility] [place] [address](Hea ring Conservat ion, BMT) OUTPATIENT [id number] Notes Entered by: NURA COHEN 22 Dec 2017 0757 ------- ------- ------- ------- -- hearing test NURA COHEN 12/22 Released w/o Limitations [facility] [place] [address](H earing Conserv ation, BMT) [facility] [place] [address](ATR 323 TRS,BMT) OUTPATIENT [id number] Notes Entered by: JONG GAINES 03 Jan 2018 1429 ------- ------- ------- ------- -- Left lower leg pain ALONSO SNYDER 01/03 Released with Work/Duty Limitations [facility] [place] [address](A TR 323 TRS,BMT ) [facility] [place] [address](ATR 323 TRS,BMT) OUTPATIENT [id number] Notes Entered by: JONG GAINES 09 Jan 2018 1031 ------- ------- ------- ------- -- f/u left lower leg pain ALONSO SNYDER 01/09 Released with Work/Duty Limitations [facility] [place] [address](A TR 323 TRS,BMT ) [facility] [place] [address](ATR 323 TRS,BMT) OUTPATIENT [id number] Notes Entered by: JONG GAINES 10 Jan 2018 1453 ------- ------- ------- ------- -- f/u left ankle pain LILLIANARIELLAJo Peña 01/10 Released with Work/Duty Limitations [facility] [place] [address](A TR 323 TRS,BMT ) [facility] [place] [address]([facility]) OUTPATIENT [id number] Notes Entered by: Daniel ERAZO 12 Jan 2018 1040 ------- ------- ------- ------- -- Strep Prophyl axsis (Late Entry from Dec 31) ALEXANDER ERAZO 01/12 [facility]ased w/o Limitations [facility] [place] [address]([facility] danitza) [address] [place] [address] Adan [facility]) TELE CONSULT [id number] Notes Entered by: VIANNEY VANEGAS 07 Jun 2018 1229 ------- ------- ------- ------- -- inproce ssing DAYAMI VANEGAS 06/07 Other Not Elsewhere Classified [address] [place] [address] Group Adan B [facility]O ldclini c) [address] [place] [address] Adan B [facility]) OUTPATIENT [id number] initial member eye exam CRISS GALINDO 06/16 Released w/o Limitations [address] [place] [address] Adan DEVINEB [facility])(O ldclini c) [address] [place] [address] Adan B [facility]) OUTPATIENT [id number] initial pha review JANELLE TEAGUE 06/16 Released w/o Limitations [address] [place] [address] Adan DEVINEB [place]O ldclini c) [address] [place] [address] Adan B ([facility]) TELE CONSULT [id number] HAYDEN MAJOR 06/[address] [place] [address] [employer] ([facility]) [address] [place] [address] Adan DEVINEB ([facility]) OUTPATIENT [id number] Notes Entered by: DARLINE WHITE 17 Aug 2019 1103 ------- ------- ------- ------- -- DARLINE IVERSON 08/17 Released w/o Limitations [address] [place] [address])([address] [place] [address] Care [facility]) [address] [place] [address])(War rior Op Med Cln Tm A Ad) TELE CONSULT [id number] Notes Entered by: NICK ERNANDEZ 13 Jan 2020 1320 ------- ------- ------- ------- -- DUANE F/U Sienna Ledezma o - - tsg [place] 01/12 Other Not Elsewhere Classified [address] [place] [address])(W arrior Op Med Cln Tm A Ad) [address] [place] [address])(Opt ometry) OUTPATIENT [id number] Routine Eye Exam WAI DELONG 04/23 Released w/o Limitations [address] [place] [address])(O ptometr y) [address] [place] [address])([address] [place] [address] Care [facility]) TELE CONSULT [id number] Notes Entered by: VIRGIL LEE 25 May 2020 1632 ------- ------- ------- ------- -- pha review VIRGIL LEE 05/[address] [place] [address])([address] [place] [address]) Theater Facility OUTPATIENT [id number] Theater Provider 08/24 Sick at Home/Quarter s Theater Facilit y Theater Facility OUTPATIENT [id number] Theater Provider 12/10 Released w/o Limitations Theater Facilit y [address] [place] [address])([address] [place] [address]) OUTPATIENT [id number] Notes Entered by: Khushboo ALAMO 15 Mar 2021 1400 ------- ------- ------- ------- -- phaq BUZZ ALAMO 03/15 Released w/o Limitations [facility] Adan SYBILVera ([facility] [facility]) [facility] Adan SYBILVera ([facility]) OUTPATIENT [id number] Notes Entered by: Khushboo ALAMO 16 Mar 2022 1700 ------- ------- ------- ------- -- phaq BUZZ ALAMO 03/16 Released w/o Limitations [address] [place] [address] Group Adan SYBILVera ([facility]) Procedures Combined list of: 1) Procedures from Department of Veterans Affairs facilities going back up to thelast 18 months, not all VA non-surgical procedures are included; 2) All procedures from the Department of Defense facilities. Procedure Procedure Type Code Date Perfomer Comments Sourc e No data available for this section Ambulatory Pharmacy COMPUTERIZED CORNEAL TOPOGRAPHY, UNILATERAL OR BILATERAL, WITH INTERPRETATION AND REPORT [facility] PSYCHOLOGICAL OR NEUROPSYCHOLOGICAL TEST ADMINISTRATION, WITH SINGLE AUTOMATED, STANDARDIZED INSTRUMENT VIA ELECTRONIC PLATFORM, WITH AUTOMATED RESULT ONLY DoD Modalities Cryotherapy Cold Packs Modalities Cryotherapy Cold Packs 80847 018 ALONSO SNYDER Physical Therapy Mobilization Joint Physical Therapy Mobilization Joint [address] Supervised Injection Intramuscular Antibiotic Supervised Injection Intramuscular Antibiotic 67688 018 ALEXANDER ERAZO Patient Counseling Medical Management Five To Eight Patients Patient Counseling Medical Management Five To Eight Patients [id number] ALEXANDER ERAZO Modalities Cryotherapy Cold Packs Modalities Cryotherapy Cold Packs 64131 018 ALONSO SNYDER Taping Ankle Taping Ankle 43802 018 ALONSO SNYDER Physical Therapy Mobilization Joint Physical Therapy Mobilization Joint 99529 018 ALONSO SNYDER Mobilization Soft Ti ue Mobilization Soft Tissue 71284 018 ALONSO SNYDER DoD Athletic Training Re-evaluation Athletic Training Re-evaluation 90825 018 ALONSO SNYDER Modalities Cryotherapy Cold Packs Modalities Cryotherapy Cold Packs [address] [facility] Physical Therapy Mobilization Joint Physical Therapy Mobilization Joint [address] [facility] Physical Therapy: ___ Se ion Segments, 15 Minutes Each Physical Therapy: ___ Session Segments, 15 Minutes Each [address] [facility] Threshold Audiogram (Pure Tone) Threshold Audiogram (Pure Tone) [address] [facility] Psychometric Neuropsych Testing Battery Admin By Computer Psychometric Neuropsych Testing Battery Admin By Computer [id number] [facility] Ophthalmological New Patient Start Comprehensive Care Ophthalmological New Patient Start Comprehensive Care [address] [facility] Determination Of Refractive State Determination Of Refractive State [address] [facility] Spectacles Services Fitting Monofocals (Not For Aphakia) Spectacles Services Fitting Monofocals (Not For Aphakia) [address] [facility] Computerized Corneal Topography Computerized Corneal Topography [address] [facility] Social History Combined list of available smoking, tobacco, and other social history from Department of Defense and Veterans Affairs facilities. Social History Type Response Date Comment Sourc e This section is an empty social history section. [facility] Assessment and Plan Combined list of future care activities from Department of Defense and Veterans Affairs facilities (e.g., assessment and plan notes, appointments, orders, and referrals). Additional future care activities may be listed in the Plan of Care section. Result Assessment and Plan Date Source Assessment and Plan No data available for this section 03/20/2025 Ambulatory Pharmacy Functional Status Combined list of recent functional and cognitive assessments recorded at Department of Defense and Veterans Affairs ([place] Functional Trigg Measurement (FIM) Scale: 1 = Total Assistance (Subject = 0% +), 2 = Maximal Assistance (Subject = 25% +), 3 = Moderate Assistance (Subject = 50% +), 4 = Minimal Assistance (Subject = 75% +), 5 = Supervision, 6 = Modified Trigg (Device), 7 = Complete Trigg (Timely, Safely). Assessment Date/Time Source Assessment Type Assessment Skill Assessment Score Assessment Details No data available for this section
== END 2025-03-20 14:31 | disposition home or self-care (01) ==
PROVIDERS: Visit Provider Nurse Practitioner Family
DX: N20.0 Calculus of kidney (principal)
CPT/HCPCS: 74018